=== PATIENT | male | born 1990 ===

== ENCOUNTER 2020-09-30 16:04 | Emergency (ER) | payer MEDICAID, OTHER ==
[~2020-09-30] VITALS: Ht 180.3 cm; Wt 81.6 kg
[2020-09-30 16:30] VITALS: BP 151/90
== END 2020-09-30 17:35 | disposition home or self-care (01) ==
LOC: ER 16:04
DX: S39.011A Strain of muscle, fascia and tendon of abdomen, initial encounter (principal); M43.06 Spondylolysis, lumbar region; V43.52XA Car driver injured in collision with other type car in traffic accident, initial encounter; Y93.89 Activity, other specified; Y92.488 Other paved roadways as the place of occurrence of the external cause; Y99.8 Other external cause status
CPT/HCPCS: 74176